=== PATIENT | male | born 1955 | race Caucasian/White ===

== ENCOUNTER → 2020-07-17 | Outpatient (CLI) | payer OTHER, MEDICARE ==
[~2020-07-17] MED LIST: TRIA1TAB5 PO; Testosterone PO; VALS320T2 PO
[2020-07-17 10:50] LABS: ALANINE AMINOTRANSFERASE 30 U/L (12-78); ALBUMIN 3.8 g/dL (3.4-5.0); CALCIUM 8.9 mg/dL (8.5-10.1); CREATININE 1.43 mg/dL (0.7-1.3)
[2020-07-17 10:52] LABS: ALKALINE PHOSPHATASE 84 U/L (45-117); BILIRUBIN,TOTAL 0.5 mg/dL (0.2-1.0); TOTAL PROTEIN 7.5 g/dL (6.4-8.2)
[2020-07-17 11:32] LABS: ANION GAP 3 mmol/L (5-15); CHLORIDE 106 mmol/L (98-107)
== END | disposition home or self-care (01) ==
LOC: STAR 09:05
PROVIDERS: ATTEND Orthopaedic Surgery
DX: Z01.818 Encounter for other preprocedural examination (principal); M75.122 Complete rotator cuff tear or rupture of left shoulder, not specified as traumatic; M75.22 Bicipital tendinitis, left shoulder; M75.42 Impingement syndrome of left shoulder; I25.2 Old myocardial infarction; Z20.822 Contact with and (suspected) exposure to COVID-19
CPT/HCPCS: 36415; 80053; 93005; U0003; U0005

== ENCOUNTER 2020-07-23 14:48 | Day surgery (SDC) | payer OTHER, MEDICARE ==
[~2020-07-23] VITALS: Ht 170.2 cm; Wt 90.6 kg
[2020-07-23] MEDS ORDERED: SUCCINYLCHOLINE 20 MG/ML, 10ML ONE (15:00)
[2020-07-23] MEDS ORDERED: DEXAMETHASONE 4 MG/ML, 1ML ONE (15:00)
[2020-07-23] MEDS ORDERED: ONDANSETRON 2MG/ML, 2ML ONE (15:00)
[2020-07-23] MEDS ORDERED: PROPOFOL 10 MG/ML, 20ML ONE (15:00)
[2020-07-23] MEDS ORDERED: ROCURONIUM 10MG/ML,5ML ONE (15:00)
[2020-07-23] MEDS ORDERED: CEFAZOLIN 1,000 MG ONE (15:00)
[2020-07-23] MEDS ORDERED: CHLORHEXIDINE 15 ML UDC ONE (15:19)
[2020-07-23] MEDS ORDERED: LACTATED RINGERS 1,000 ML IV SCH (15:30)
[2020-07-23] MEDS ORDERED: CHLORHEXIDINE 15 ML UDC PO ONE (15:30)
[2020-07-23] MEDS ORDERED: BUPIVACAINE/PF 0.5% ONE (16:30)
[2020-07-23] MEDS ORDERED: EPINEPHRINE 1 MG/ML, 1ML ONE (16:30)
[2020-07-23] MEDS ORDERED: LIDOCAINE/PF 1%, 30ML ONE (16:30)
[2020-07-23] MEDS ORDERED: FENTANYL PF 250 MCG/5ML ONE (16:55)
[2020-07-23] MEDS ORDERED: ONDANSETRON 2MG/ML, 2ML IVPush PRN (17:30)
[2020-07-23] MEDS ORDERED: HYDROmorphone 1 MG/ML, 1ML INJ IVPush PRN (17:30)
[2020-07-23] MEDS ORDERED: OXYcodone 5 MG/5 ML ORAL.SOL UDC PO PRN (17:30)
[2020-07-23] MEDS ORDERED: MEPERIDINE/PF 25MG/0.5ML IVPush PRN (17:30)
[2020-07-23] MEDS ORDERED: ACETAMINOPHEN 325 MG TABLET PO PRN (17:30)
[2020-07-23] MEDS ORDERED: FENTANYL PF 100 MCG/2ML IV PRN (17:30)
[2020-07-23] MEDS ORDERED: LABETALOL 5MG/ML, 20ML IV PRN (17:30)
[2020-07-23] MEDS ORDERED: EPHEDRINE 50 MG/ML, 1ML IVPush PRN (17:30)
[2020-07-23] MEDS ORDERED: METHOCARBAMOL 1,000 MG in DEXTROSE 5% 100 ML IV PRN (17:30)
[2020-07-23] MEDS ORDERED: HYDROmorphone 1 MG/ML, 1ML INJ ONE (17:47)
[2020-07-23] MEDS ORDERED: hydrALAzine 20 MG/ML, 1ML ONE (18:42)
[2020-07-23] MEDS: hydrALAzine 20 MG/ML, 1ML IV PRN ×2 (18:47→19:14)
[2020-07-23] MEDS ORDERED: OXYC5TAB98 PO (20:21)
[2020-07-24] MEDS ORDERED: VALSARTAN 320 MG TABLET PO SCH (09:00)
[2020-07-24] MEDS ORDERED: TRIAMTERENE/HCTZ 75/50MG TABLET PO SCH (09:00)
[2020-07-24] MEDS ORDERED: SUCCINYLCHOLINE 20 MG/ML, 10ML ONE (15:24)
[2020-07-24] MEDS ORDERED: CEFAZOLIN 1,000 MG ONE (15:24)
[2020-07-24] MEDS ORDERED: ONDANSETRON 2MG/ML, 2ML ONE (15:24)
[2020-07-24] MEDS ORDERED: ROCURONIUM 10MG/ML,5ML ONE (15:24)
[2020-07-24] MEDS ORDERED: PROPOFOL 10 MG/ML, 20ML ONE (15:24)
[2020-07-24] MEDS ORDERED: DEXAMETHASONE 4 MG/ML, 1ML ONE (15:24)
== END 2020-07-23 20:50 | disposition home or self-care (01) ==
LOC: OR 14:48
PROVIDERS: ATTEND Orthopaedic Surgery
DX: S46.012A Strain of muscle(s) and tendon(s) of the rotator cuff of left shoulder, initial encounter (principal); S43.432A Superior glenoid labrum lesion of left shoulder, initial encounter; M75.42 Impingement syndrome of left shoulder; M19.012 Primary osteoarthritis, left shoulder; M65.812 Other synovitis and tenosynovitis, left shoulder; M75.52 Bursitis of left shoulder; G89.18 Other acute postprocedural pain; I10 Essential (primary) hypertension; X58.XXXA Exposure to other specified factors, initial encounter; Y93.89 Activity, other specified; Y92.89 Other specified places as the place of occurrence of the external cause; Y99.8 Other external cause status
CPT/HCPCS: 29823; 29824; 29826; 29827; 64415; C1713; J0171; J0330; J0360; J0690; J1100; J1170; J2405; J2704; J3010; J7120